=== PATIENT | female | born 2000 | race Caucasian/White ===

== ENCOUNTER 2019-03-29 11:37 | Outpatient (CLI) | payer MEDICAID ==
[2019-03-29] MEDS ORDERED: ACETAMINOPHEN 500 MG TAB PO (12:45)
[2019-03-29] MEDS ORDERED: DIPHENHYDRAMINE 25 MG CAP PO (13:00)
[2019-03-29] MEDS ORDERED: HYDROCORTISONE 0.5% 28.35 GM CR TOP (14:00)
[2019-03-29 15:09] LABS: ALANINE AMINOTRANSFERASE 21 IU/L (13-69); ALBUMIN 3.3 g/dl (3.3-4.9); ALBUMIN/GLOBULIN RATIO 0.94; ALKALINE PHOSPHATASE 233 IU/L (42-121); ANION GAP 7 (5-13); ASPARTATE AMINO TRANSFERASE 27 IU/L (15-46); BILIRUBIN,INDIRECT 0.5 mg/dl (0-1.1); BILIRUBIN,TOTAL 0.5 mg/dl (0.2-1.3); BLOOD UREA NITROGEN 8 mg/dl (7-20); CALCIUM 9.2 mg/dl (8.4-10.2); CARBON DIOXIDE 24 mmol/L (21-31); CHLORIDE 104 mmol/L (97-110); CREATININE 0.51 mg/dl (0.44-1.00); Estimated GFR > 60 mL/min (>60); GLUCOSE 67 mg/dl (70-220); POTASSIUM 3.8 mmol/L (3.5-5.1); SODIUM 135 mmol/L (135-144); TOTAL PROTEIN 6.8 g/dl (6.1-8.1)
[2019-04-02 00:03] LABS: CHENODEOXYCHOLIC ACID <0.5 umol/L (< OR = 3.1); CHOLIC ACID <0.5 umol/L (< OR = 1.8); DEOXYCHOLIC ACID <0.5 umol/L (< OR = 2.4); TOTAL BILE ACIDS <1.5 umol/L (< OR = 6.8)
== END 2019-03-29 14:30 | disposition home or self-care (01) ==
LOC: OBT 11:37 → L-D 11:39 → OBT 14:30
DX: O26.893 Other specified pregnancy related conditions, third trimester (principal); Z3A.34 34 weeks gestation of pregnancy; R21 Rash and other nonspecific skin eruption
CPT/HCPCS: 76818; 80053; 83789

== ENCOUNTER 2019-05-04 11:35 | Inpatient (IN) | payer MEDICAID ==
[2019-05-04 13:30] LABS: ADD UMIC NO; UR ASCORBIC ACID NEGATIVE (NEGATIVE); UR BILIRUBIN (Dip) NEGATIVE (NEGATIVE); UR BLOOD (Dip) NEGATIVE (NEGATIVE); UR CLARITY CLEAR (CLEAR); UR COLOR YELLOW (YELLOW); UR GLUCOSE (Dip) NEGATIVE (NEGATIVE); UR KETONES (Dip) NEGATIVE (NEGATIVE); UR LEUKOCYTE ESTERASE (Dip) NEGATIVE Leu/ul (NEGATIVE); UR NITRITE (Dip) NEGATIVE (NEGATIVE); UR SPECIFIC GRAVITY (Dip) 1.014 (1.003-1.030); UR TOTAL PROTEIN (Dip) NEGATIVE (NEGATIVE); UR UROBILINOGEN (Dip) NEGATIVE (NEGATIVE)
[2019-05-04] MEDS: LACTATED RINGER'S 1,000 ML IV ×3 (13:50→23:43)
[2019-05-04 13:58] LABS: ADD MAN DIFF? NO
[2019-05-04] MEDS ORDERED: OXYTOCIN 30 UNITS/LR 500 ML IV ×2 (14:00)
[2019-05-04] MEDS ORDERED: LIDOCAINE 1% (MPF) 30 ML INJ INJ (14:00)
[2019-05-04] MEDS ORDERED: MISOPROSTOL 200 MCG TAB PR (14:00)
[2019-05-04] MEDS ORDERED: METHYLERGONOVINE 0.2 MG INJ IM (14:00)
[2019-05-04] MEDS ORDERED: CARBOPROST 250 MCG INJ IM (14:00)
[2019-05-04] MEDS ORDERED: BUTORPHANOL 2 MG INJ IV (14:00)
[2019-05-04] MEDS: AMPICILLIN 2 GM/NS (PMX) 100 ML IV (14:00)
[2019-05-04 14:03] LABS: BASOPHILS % 0.4 % (0.0-2.0); EOSINOPHILS # 0.2 10^3/ul (0.0-0.5); EOSINOPHILS % 2.1 % (0.0-7.0); HEMATOCRIT 38.6 % (37.0-47.0); LYMPHOCYTES % 21.7 % (18.0-55.0); MEAN CORPUSCULAR HEMOGLOBIN 31.3 pg (29.0-33.0); MEAN CORPUSCULAR HGB CONC 33.7 g/dl (32.0-37.0); MONOCYTE # 0.6 10^3/ul (0.3-0.9); MONOCYTES % 6.4 % (0.0-13.0); NEUTROPHIL # 6.3 10^3/ul (1.6-7.5); NEUTROPHILS % 68.9 % (30.0-74.0); PLATELET COUNT 148 10^3/UL (140-415); RED BLOOD COUNT 4.15 10^6/ul (4.20-5.40); RED CELL DISTRIBUTION WIDTH 12.8 % (11.5-14.5)
[2019-05-04 14:03] LABS: WHITE BLOOD COUNT 9.1 10^3/ul (4.8-10.8)
[2019-05-04 14:19] LABS: ALANINE AMINOTRANSFERASE 36 IU/L (13-69); ALBUMIN 3.2 g/dl (3.3-4.9); ALBUMIN/GLOBULIN RATIO 0.91; ALKALINE PHOSPHATASE 274 IU/L (42-121); ANION GAP 4 (5-13); ASPARTATE AMINO TRANSFERASE 41 IU/L (15-46); BILIRUBIN,INDIRECT 0.6 mg/dl (0-1.1); BILIRUBIN,TOTAL 0.6 mg/dl (0.2-1.3); BLOOD UREA NITROGEN 7 mg/dl (7-20); CALCIUM 8.7 mg/dl (8.4-10.2); CARBON DIOXIDE 23 mmol/L (21-31); CHLORIDE 108 mmol/L (97-110); CREATININE 0.55 mg/dl (0.44-1.00); Estimated GFR > 60 mL/min (>60); GLUCOSE 71 mg/dl (70-220); POTASSIUM 4.2 mmol/L (3.5-5.1); SODIUM 135 mmol/L (135-144); TOTAL PROTEIN 6.7 g/dl (6.1-8.1); URIC ACID 5.7 mg/dl (3.1-7.9)
[2019-05-04 14:25] LABS: INR 0.93; PROTIME 12.6 Sec (11.9-14.9)
[2019-05-04 14:26] LABS: PARTIAL THROMBOPLASTIN TIME 29.7 Sec (23.0-35.0)
[2019-05-04 15:24] LABS: RAPID PLASMA REAGIN NONREACTIVE (NR)
[2019-05-04] MEDS: AMPICILLIN 1 GM/NS (PMX) 50 ML IV ×2 (16:30→20:30)
[2019-05-05] MEDS: AMPICILLIN 1 GM/NS (PMX) 50 ML IV ×2 (00:30→16:00)
[2019-05-05] MEDS: LACTATED RINGER'S 1,000 ML IV ×2 (07:08→09:09)
[2019-05-05] MEDS ORDERED: LIDOCAINE 1.5%/EPI MPF (SDV) 30 ML VIAL (08:34)
[2019-05-05] MEDS ORDERED: FENTAnyl 2MCG/ML-ROPIV 0.2% 100 ML (08:48)
[2019-05-05] MEDS: OXYTOCIN 30 UNITS/LR 500 ML IV ×2 (09:23→22:25)
[2019-05-05] MEDS ORDERED: NALOXONE (0.4 MG/ML) INJ IV ×2 (09:30→22:30)
[2019-05-05] MEDS: ACETAMINOPHEN 325 MG TAB PO (16:46)
[2019-05-05] MEDS ORDERED: AMPICILLIN 2 GM/NS (PMX) 100 ML (17:52)
[2019-05-05] MEDS: AMPICILLIN 2 GM/NS (PMX) 100 ML IVPB (17:57)
[2019-05-05] MEDS ORDERED: TERBUTALINE 1 ML (18:14)
[2019-05-05] MEDS: AZITHROMYCIN 500MG/NS (PMX) 250 ML IV (18:31)
[2019-05-05] MEDS: TERBUTALINE 1 MG/ML INJ SC (18:35)
[2019-05-05] MEDS: FENTAnyl 2MCG/ML-ROPIV 0.2% 100 ML BAG EPI (18:42)
[2019-05-05] MEDS: CEFAZOLIN 2 GM/50 ML (PMX) 50 ML IVPB (20:20)
[2019-05-05] MEDS ORDERED: OXYTOCIN 10 UNIT INJ (20:34)
[2019-05-05] MEDS ORDERED: morphine SULFATE/PF (10 MG/10 ML) INJ (20:34)
[2019-05-05] MEDS ORDERED: FENTAnyl 50 MCG/ML VIAL (20:52)
[2019-05-05] MEDS ORDERED: METOCLOPRAMIDE 10 MG INJ (21:20)
[2019-05-05] MEDS ORDERED: ONDANSETRON 4 MG INJ (21:22)
[2019-05-05] MEDS: KETOROLAC 30 MG INJ IV (22:23)
[2019-05-05] MEDS ORDERED: ONDANSETRON 4 MG INJ IV (22:30)
[2019-05-05] MEDS ORDERED: DIPHENHYDRAMINE 50 MG INJ IV (22:30)
[2019-05-05] MEDS: morphine 2 MG INJ IV (23:21)
[2019-05-06 00:22] LABS: HEPATITIS B SURFACE ANTIBODY NEGATIVE (NEGATIVE)
[2019-05-06] MEDS: OXYTOCIN 30 UNITS/LR 500 ML IV ×2 (01:15→04:20)
[2019-05-06] MEDS: DEXTROSE 5%-LR 1,000 ML IV (01:15)
[2019-05-06] MEDS ORDERED: METHYLERGONOVINE 0.2 MG TAB PO (01:30)
[2019-05-06] MEDS ORDERED: MAGNESIUM HYDROXIDE 30ML CUP PO (01:30)
[2019-05-06] MEDS ORDERED: CARBOPROST 250 MCG INJ IM (01:30)
[2019-05-06] MEDS ORDERED: OXYTOCIN 30 UNITS/LR 500 ML IV (01:30)
[2019-05-06] MEDS ORDERED: MISOPROSTOL 200 MCG TAB PR (01:30)
[2019-05-06] MEDS ORDERED: METHYLERGONOVINE 0.2 MG INJ IM (01:30)
[2019-05-06] MEDS ORDERED: HYDROCODONE/APAP (5/325) TAB PO ×3 (01:30→22:00)
[2019-05-06 05:14] LABS: ADD MAN DIFF? NO
[2019-05-06 05:16] LABS: WHITE BLOOD COUNT 22.4 10^3/ul (4.8-10.8)
[2019-05-06 05:16] LABS: BASOPHIL # 0.1 10^3/ul (0.0-0.1); BASOPHILS % 0.3 % (0.0-2.0); HEMATOCRIT 34.8 % (37.0-47.0); HEMOGLOBIN 11.8 g/dl (12.0-16.0); LYMPHOCYTES # 2.2 10^3/ul (0.8-2.9); LYMPHOCYTES % 9.6 % (18.0-55.0); MEAN CORPUSCULAR HEMOGLOBIN 31.9 pg (29.0-33.0); MEAN CORPUSCULAR HGB CONC 33.9 g/dl (32.0-37.0); MEAN CORPUSCULAR VOLUME 94.1 fl (72.0-104.0); MEAN PLATELET VOLUME 9.7 fl (7.4-10.4); MONOCYTE # 1.1 10^3/ul (0.3-0.9); MONOCYTES % 4.7 % (0.0-13.0); NEUTROPHILS % 84.7 % (30.0-74.0); PLATELET COUNT 105 10^3/UL (140-415); RED CELL DISTRIBUTION WIDTH 13.2 % (11.5-14.5)
[2019-05-06] MEDS: CELECOXIB 200 MG CAP PO ×2 (09:50→21:19)
[2019-05-06] MEDS: SENNA/DOCUSATE NA (8.6MG/50MG) TAB PO ×2 (09:50→21:19)
[2019-05-06] MEDS ORDERED: DOCUSATE SODIUM 100 MG CAP PO (10:00)
[2019-05-06] MEDS ORDERED: DIPHTH/TET/ACEL PERTUSS (ADULT) 0.5 ML VIAL IM* (11:00)
[2019-05-06] MEDS ORDERED: HYDROCODONE/APAP (5/325) TAB NGT (11:00)
[2019-05-06] MEDS: ACETAMINOPHEN 500 MG TAB PO (15:56)
[2019-05-06] MEDS ORDERED: IBUPROFEN 800 MG TAB PO (22:00)
[2019-05-06] MEDS ORDERED: HYDROCODONE/APAP (5/325) TAB GTB (22:00)
[2019-05-07] MEDS: IBUPROFEN 600 MG TAB PO ×3 (02:15→17:51)
[2019-05-07 05:00] LABS: ADD MAN DIFF? NO
[2019-05-07 05:11] LABS: ABNORMAL IP MESSAGE 1; BASOPHILS % 0.2 % (0.0-2.0); EOSINOPHILS # 0.2 10^3/ul (0.0-0.5); EOSINOPHILS % 1.4 % (0.0-7.0); HEMATOCRIT 30.9 % (37.0-47.0); HEMOGLOBIN 10.3 g/dl (12.0-16.0); MEAN CORPUSCULAR HEMOGLOBIN 31.7 pg (29.0-33.0); MEAN CORPUSCULAR HGB CONC 33.3 g/dl (32.0-37.0); MEAN CORPUSCULAR VOLUME 95.1 fl (72.0-104.0); MEAN PLATELET VOLUME 9.5 fl (7.4-10.4); MONOCYTE # 0.8 10^3/ul (0.3-0.9); MONOCYTES % 5.5 % (0.0-13.0); NEUTROPHIL # 11.3 10^3/ul (1.6-7.5); NEUTROPHILS % 78.2 % (30.0-74.0); PLATELET COUNT 96 10^3/UL (140-415); RED BLOOD COUNT 3.25 10^6/ul (4.20-5.40); RED CELL DISTRIBUTION WIDTH 13.5 % (11.5-14.5)
[2019-05-07 05:11] LABS: WHITE BLOOD COUNT 14.5 10^3/ul (4.8-10.8)
[2019-05-07 05:13] LABS: POSITIVE DIFF @See below
[2019-05-07] MEDS: LANOLIN HPA 1 PKT TOP (05:54)
[2019-05-07] MEDS: CELECOXIB 200 MG CAP PO ×2 (08:26→21:11)
[2019-05-07] MEDS: SENNA/DOCUSATE NA (8.6MG/50MG) TAB PO ×2 (08:26→21:11)
[2019-05-07] MEDS: DIPHTH/TET/ACEL PERTUSS (ADULT) 0.5 ML VIAL IM* (11:23)
[2019-05-08] MEDS: IBUPROFEN 600 MG TAB PO (04:50)
[2019-05-08] MEDS: CELECOXIB 200 MG CAP PO (08:49)
[2019-05-08] MEDS: SENNA/DOCUSATE NA (8.6MG/50MG) TAB PO (08:49)
[2019-05-08] MEDS: MEASLES,MUMPS,RUBELLA VACCINE INJ SC* (09:25)
== END 2019-05-08 15:25 | disposition home or self-care (01) | DRG 788 ==
LOC: OBT 11:35 → MS1 05-06 00:47 → L-D 11:37 → OBT 12:08 → L-D 12:08
PROC: 10D00Z1 Extraction of Products of Conception, Low, Open Approach (ICD-10-PCS; principal; 2019-05-05 19:15)
DX: O48.0 Post-term pregnancy (principal); O62.1 Secondary uterine inertia; Z3A.40 40 weeks gestation of pregnancy; Z37.0 Single live birth
CPT/HCPCS: 62322; 76818; 80053; 81003; 84560; 85025; 85384; 85610; 85730; 86592; 86706; 86850; 86900; 86901; 90715; 99464